=== PATIENT | female | born 1955 | race Caucasian/White ===

== ENCOUNTER 2016-10-25 14:09 | Outpatient (CLI) | payer OTHER | END 2016-10-25 14:10 | disposition home or self-care (01) | DX: Z01.812 Encounter for preprocedural laboratory examination (principal); M16.10 Unilateral primary osteoarthritis, unspecified hip; Z79.899 Other long term (current) drug therapy ==

== ENCOUNTER 2016-11-16 10:51 | Outpatient (CLI) | payer OTHER | END 2016-11-16 10:52 | disposition home or self-care (01) | DX: Z12.31 Encounter for screening mammogram for malignant neoplasm of breast (principal); Z80.3 Family history of malignant neoplasm of breast ==

== ENCOUNTER 2017-02-12 08:55 | Outpatient (CLI) | payer OTHER ==
[2017-02-12 19:16] LABS: ALBUMIN/GLOBULIN RATIO 1.7 (1.0-2.2); BILIRUBIN,TOTAL 0.6 mg/dL (0.2-1.0); BUN - BLOOD UREA NITROGEN 13 mg/dL (6-20); CARBON DIOXIDE - CO2 26 mmol/L (21-32); CHLORIDE 105 mmol/L (101-111); CHOLESTEROL 272 mg/dL; CREATININE 0.8 mg/dL (0.4-1.0); GFR - MDRD 73 (>89); GLUCOSE 100 mg/dL (70-100); HDL CHOLESTEROL 54 mg/dL; LDL/HDL RATIO 3.2 (<4.4); POTASSIUM 3.7 mmol/L (3.5-5.0); SODIUM 140 mmol/L (135-145); TOTAL PROTEIN 6.7 g/dL (6.7-8.2); TRIGLYCERIDES 218 mg/dL; VLDL CHOLESTEROL 44 mg/dL
[2017-02-12 20:01] LABS: HEMOGLOBIN A1C 0.49 g/dL
[2017-02-13 12:01] LABS: HOMOCYSTEINE 10.5 umol/L (<10.4)
== END 2017-02-12 08:56 | disposition home or self-care (01) ==
LOC: LAB.F 08:55
PROVIDERS: ATTEND Internal Medicine
DX: E78.2 Mixed hyperlipidemia (principal)
CPT/HCPCS: 36415; 80053; 80061; 80175; 83036; 83090

== ENCOUNTER 2017-04-25 12:21 | Emergency (ER) | payer OTHER ==
[2017-04-25 12:34] VITALS: BP 138/94
[2017-04-25 12:58] LABS: BILIRUBIN,URINE NEGATIVE (NEGATIVE)
[2017-04-25 13:00] LABS: BASOPHILS % (AUTO) 0.5 %; EOSINOPHILS % (AUTO) 0.4 %; HCT - HEMATOCRIT 44.1 % (37.0-47.0); HGB - HEMOGLOBIN 14.6 g/dL (12.0-16.0); LYMPHOCYTES # (AUTO) 1.5 10^3/uL (1.5-3.5); LYMPHOCYTES % (AUTO) 18.5 %; MEAN CORPUSCULAR HEMOGLOBIN 30.1 pg (27.0-31.0); MEAN CORPUSCULAR HGB CONC 33.2 g/dL (32.0-36.0); MEAN CORPUSCULAR VOLUME 90.9 fL (81.0-99.0); MEAN PLATELET VOLUME 10.2 fL (7.9-10.8); MONOCYTES # (AUTO) 0.4 10^3/uL (0.0-1.0); MONOCYTES % (AUTO) 5.2 %; NEUTROPHILS # (AUTO) 5.9 10^3/uL (1.5-6.6); NEUTROPHILS % (AUTO) 75.4 %; RED BLOOD COUNT 4.86 10^6/uL (4.20-5.40); RED CELL DISTRIBUTION WIDTH 15.4 % (12.0-15.0); UNCORRECTED WHITE BLOOD COUNT 7.9 x10^3/uL; WHITE BLOOD COUNT 7.9 x10^3/uL (4.8-10.8)
[2017-04-25 13:01] LABS: UA CHARGE (STRIP ONLY) YES; UR CULTURE IF IND NOT INDICATED
[2017-04-25 13:13] LABS: ALBUMIN/GLOBULIN RATIO 1.6 (1.0-2.2); BILIRUBIN,TOTAL 0.6 mg/dL (0.2-1.0); BUN - BLOOD UREA NITROGEN 19 mg/dL (6-20); CARBON DIOXIDE - CO2 28 mmol/L (21-32); CHLORIDE 102 mmol/L (101-111); CREATININE 0.8 mg/dL (0.4-1.0); GFR - MDRD 73 (>89); GLUCOSE 110 mg/dL (70-100); LIPASE 32 U/L (22-51); POTASSIUM 3.7 mmol/L (3.5-5.0); SALICYLATE < 6.0 mg/dL; SODIUM 139 mmol/L (135-145); TOTAL PROTEIN 7.9 g/dL (6.7-8.2)
--- NOTE | 2017-04-25 13:13 | ED Physician Documentation ---
PD HPI MHE - Stated complaint Stated Complaint: MHE - Chief complaint Chief Complaint: MHE - History obtained from History obtained from: Patient, Friend - History of Present Illness Primary symptom: Suicidal ideation - Additional information Additional information: It is a 62-year-old female with a history of bipolar disorder on Lamictal, Cymbalta, and Seroquel. She is currently being weaned off the Prozac as a are increasing the dose of Cymbalta. She has been on the Cymbalta for 3 weeks. She is here with a complaint of just feeling down and depressed she is been sleeping more and is not wanted to get out and do anything. She has not been exercising and not cooking. She lives alone with her cat. She is under the care of a psychiatrist Dr. Jiménez in [place] and also [facility] a [facility]. Has appointment with her psychiatrist tomorrow and an appointment with her psychologist on Sunday. She is thought about harming herself and these thoughts were disturbing to her. She is never do anything at past and that is where there she has a encouraged to do anything but nonetheless having these thoughts are concerning to her. Other than her psychiatric problems she has no general medical conditions other than colon cancer status post colectomy with colostomy. The cancer is believed to be in remission. She has not had any systemic complaints of chest pain, shortness of breath, nausea, vomiting, constipation diarrhea, fever chills or lower urinary symptoms. Review of systems: For pertinent positive and negatives in the review of systems please see the history of present illness, otherwise all other systems have been reviewed and are negative. Dragon disclaimer: Parts of this medical record were created using voice recognition technology. Because of the inherent limitations of this system, occasional same sounding word substitutions do occur and persist despite proofreading. Please read the document for context. Review of Systems Psychiatric: reports: Depressed, Suicidal, Anxiety, Insomnia. denies: Homicidal , Hallucinations, Delusions PD PAST MEDICAL HISTORY - Past Medical History Past Medical History: Yes Cardiovascular: None Respiratory: None Neuro: None Endocrine/Autoimmune: None GI: None PASSENGER AGENT: None : None HEENT: None Psych: Depression, Bipolar disorder Musculoskeletal: Osteoarthritis Derm: None - Past Surgical History Past Surgical History: Yes General: Bowel surgery, Colonoscopy HEENT: Tonsil/Adenoidectomy - Present Medications Home Medications: Ambulatory Orders Medication Instructions Recorded Confirmed Fluoxetine HCl [Prozac] 10 mg PO DAILY 04/14/15 04/25/17 QUEtiapine [SEROquel] 200 mg PO QPM 04/14/15 04/25/17 Alprazolam [Xanax] 0.25 mg PO BID PRN #14 tablet 04/25/17 Duloxetine HCl [Cymbalta] 60 mg PO DAILY 04/25/17 04/25/17 lamoTRIgine [LaMICtal] 200 mg PO DAILY 04/25/17 04/25/17 - Allergies Allergies/Adverse Reactions: Allergies Allergy/AdvReac Type Severity Reaction Status Date / Time amoxicillin AdvReac Hives Verified 12/06/15 16:50 - Social History Does the pt smoke?: No Smoking Status: Never smoker Does the pt drink ETOH?: No Does the pt have substance abuse?: No - Immunizations Immunizations are current?: Yes - POLST Patient has POLST: No PD ED PE NORMAL - Vitals Vital signs reviewed: Yes - General General: Alert and oriented X 3, No acute distress - HEENT HEENT: Atraumatic, PERRL, EOMI, Pharynx benign, Dentition benign - Neck Neck: Supple, no meningeal sign - Cardiac Cardiac: RRR, No murmur, No gallop, No rub - Respiratory Respiratory: No respiratory distress, Clear bilaterally - Abdomen Abdomen: Normal bowel sounds, Non tender, Non distended - Derm Derm: Normal color, Warm and dry - Extremities Extremities: No deformity, No tenderness to palpate - Neuro Neuro: Alert and oriented X 3, No motor deficit, No sensory deficit - Psych Psych: Other (Sad and expressionless) Results - Vitals Vitals: Vital Signs - 24 hr 04/25/17 12:26 Temperature 36.5 C Heart Rate 124 H Respiratory 18 Rate Blood Pressure 138/94 H O2 Saturation 98 Oxygen O2 Source Room air - Labs Labs: Laboratory Tests 04/25/17 04/25/17 04/25/17 12:46 12:49 12:49 WBC 7.9 RBC 4.86 Hgb 14.6 Hct 44.1 MCV 90.9 MCH 30.1 MCHC 33.2 RDW 15.4 H Plt Count 184 MPV 10.2 Neut # 5.9 Lymph # 1.5 [place] # 0.4 Eos # 0.0 Baso # 0.0 Absolute Nucleated RBC 0.00 Nucleated RBCs 0.0 Sodium 139 Potassium 3.7 Chloride 102 Carbon Dioxide 28 Anion Gap 9.0 BUN 19 Creatinine 0.8 Estimated GFR (MDRD) 73 L Glucose 110 H Calcium 10.0 Total Bilirubin 0.6 AST 21 ALT 23 Alkaline Phosphatase 87 Total Protein 7.9 Albumin 4.9 Globulin 3.0 Albumin/Globulin Ratio 1.6 Lipase 32 TSH Urine Color YELLOW Urine Clarity CLEAR Urine pH 6.0 Ur Specific Ward 1.010 Urine Protein NEGATIVE Urine Glucose (UA) 100 H Urine Ketones NEGATIVE Urine Occult Blood NEGATIVE Urine Nitrite NEGATIVE Urine Bilirubin NEGATIVE Urine Urobilinogen 0.2 (NORMAL) Ur Leukocyte Esterase NEGATIVE Ur Microscopic Review NOT INDICATED Urine Culture Comments NOT INDICATED Salicylates < 6.0 Urine Opiates Screen NEGATIVE Ur Oxycodone Screen NEGATIVE Urine Methadone Screen NEGATIVE Ur Propoxyphene Screen NEGATIVE Acetaminophen < 10 L Ur Barbiturates Screen NEGATIVE Ur Tricyclics Screen POSITIVE H Ur Phencyclidine Scrn NEGATIVE Ur Amphetamine Screen NEGATIVE U Methamphetamines Scrn NEGATIVE U Benzodiazepines Scrn NEGATIVE Urine Cocaine Screen NEGATIVE U Cannabinoids Screen NEGATIVE Ethyl Alcohol 5.3 04/25/17 12:49 WBC RBC Hgb Hct MCV MCH MCHC RDW Plt Count MPV Neut # Lymph # [place] # Eos # Baso # Absolute Nucleated RBC Nucleated RBCs Sodium Potassium Chloride Carbon Dioxide Anion Gap BUN Creatinine Estimated GFR (MDRD) Glucose Calcium Total Bilirubin AST ALT Alkaline Phosphatase Total Protein Albumin Globulin Albumin/Globulin Ratio Lipase TSH 0.88 Urine Color Urine Clarity Urine pH Ur Specific Ward Urine Protein Urine Glucose (UA) Urine Ketones Urine Occult Blood Urine Nitrite Urine Bilirubin Urine Urobilinogen Ur Leukocyte Esterase Ur Microscopic Review Urine Culture Comments Salicylates Urine Opiates Screen Ur Oxycodone Screen Urine Methadone Screen Ur Propoxyphene Screen Acetaminophen Ur Barbiturates Screen Ur Tricyclics Screen Ur Phencyclidine Scrn Ur Amphetamine Screen U Methamphetamines Scrn U Benzodiazepines Scrn Urine Cocaine Screen U Cannabinoids Screen Ethyl Alcohol PD MEDICAL DECISION MAKING - ED course Complexity details: reviewed old records, reviewed results, re-evaluated patient , d/w patient, d/w integrity consultant ED course: Pleasant 62-year-old female with a long history of bipolar disorder mostly on the depressive side who is currently being treated and followed by a psychiatrist in [place] and the local psychologist. She has a slightly depressed mood here and is been thinking about harming herself but does not have any plan or intent to do so. She was seen by social work and we feel the patient is low risk. She will be accompanied by her friend who is with her tonight and will go home. Her friend will accompany her to the psychiatrist appointment she has tomorrow and the plan for her is to hopefully eventually go down to [place] sometime this week ago spent some time with her sister. Disposition: To home Clinical impression: 1. Suicidal ideation-low risk 2. History of bipolar disorder with mild depression at present Departure - Departure Disposition: 01 Home, Self Care Clinical Impression: Depression, Anxiety Condition: Good Instructions: ED Depression Prescriptions: Alprazolam [Xanax] 0.25 mg PO BID PRN #14 tablet PRN Reason: Anxiety
[2017-04-25 13:15] LABS: ACETAMINOPHEN < 10 ug/mL (10-30)
[2017-04-25] MEDS ORDERED: ACETAMINOPHEN 325 MG TABLET PO STA (14:10)
[2017-04-25] MEDS ORDERED: ACETAMINOPHEN 325 MG TABLET PO ONE (14:17)
[2017-04-25] MEDS ORDERED: ALPRAZolam 0.25 MG TABLET PO STA (14:39)
[2017-04-25] MEDS ORDERED: ALPRAZolam 0.25 MG TABLET PO ONE (14:50)
== END 2017-04-25 16:08 | disposition home or self-care (01) ==
LOC: ED 12:21
DX: F32.9 Major depressive disorder, single episode, unspecified (principal); F41.9 Anxiety disorder, unspecified; F31.9 Bipolar disorder, unspecified; Z93.3 Colostomy status
CPT/HCPCS: 36415; 80053; 80306; 80307; 80320; 80329; 81003; 83690; 84443; 85025; 99283; A9270; 81001; 87086

== ENCOUNTER 2017-05-22 08:00 | Outpatient (CLI) | payer OTHER | END 2017-05-22 08:01 | disposition home or self-care (01) | LOC: LAB.R 08:00 | PROVIDERS: ATTEND Nurse Practitioner Primary Care | DX: N39.0 Urinary tract infection, site not specified (principal); N89.9 Noninflammatory disorder of vagina, unspecified | CPT/HCPCS: 87077; 87086 ==

== ENCOUNTER 2017-07-17 09:44 | Outpatient (CLI) | payer OTHER ==
[2017-07-17 18:49] LABS: ALBUMIN/GLOBULIN RATIO 1.7 (1.0-2.2); BILIRUBIN,TOTAL 0.8 mg/dL (0.2-1.0); BUN - BLOOD UREA NITROGEN 17 mg/dL (6-20); CALCIUM 9.6 mg/dL (8.5-10.3); CARBON DIOXIDE - CO2 28 mmol/L (21-32); CHLORIDE 101 mmol/L (101-111); CHOL/HDL RATIO 4.7 (<4.4); CHOLESTEROL 308 mg/dL; CREATININE 0.9 mg/dL (0.4-1.0); GFR - MDRD 64 (>89); GLUCOSE 102 mg/dL (70-100); HDL CHOLESTEROL 65 mg/dL; LDL/HDL RATIO 3.4 (<4.4); POTASSIUM 4.2 mmol/L (3.5-5.0); SODIUM 140 mmol/L (135-145); TOTAL PROTEIN 7.3 g/dL (6.7-8.2); TRIGLYCERIDES 109 mg/dL; VLDL CHOLESTEROL 22 mg/dL
== END 2017-07-17 09:45 | disposition home or self-care (01) ==
LOC: LAB.F 09:44
PROVIDERS: ATTEND Internal Medicine
DX: Z00.00 Encounter for general adult medical examination without abnormal findings (principal); D12.6 Benign neoplasm of colon, unspecified; C20 Malignant neoplasm of rectum; E78.5 Hyperlipidemia, unspecified; Z72.89 Other problems related to lifestyle
CPT/HCPCS: 36415; 80053; 80061; 82306; 82378; 86803

== ENCOUNTER 2017-11-30 11:13 | Outpatient (CLI) | payer OTHER | END 2017-11-30 11:14 | disposition home or self-care (01) | LOC: DI 11:13 | PROVIDERS: ATTEND Internal Medicine | DX: R01.1 Cardiac murmur, unspecified (principal) | CPT/HCPCS: 93306 ==

== ENCOUNTER 2017-12-05 10:23 | Outpatient (CLI) | payer OTHER ==
--- NOTE | 2017-12-06 15:25 | Mammography Report ---
DIGITAL SCREENING MAMMOGRAM: 12/05/2017 CLINICAL INDICATION: A 62-year-old with family history of breast cancer for screening. COMPARISON: 10/2016, 09/2015, 08/2014, 01/2013, 08/2010. TECHNIQUE: Routine CC and MLO projections as well as bilateral laterally exaggerated craniocaudal views were obtained of the breasts. FINDINGS: Scattered fibroglandular tissue is present within the breasts. There are no dominant masses, suspicious microcalcifications, or secondary signs of malignancy. In comparison to the previous studies, there are no significant changes. IMPRESSION: NO MAMMOGRAPHIC EVIDENCE OF MALIGNANCY. NO SIGNIFICANT INTERVAL CHANGES. RECOMMENDATION: Screening mammography is recommended annually. BIRADS CATEGORY 1 - NEGATIVE. STANDARD QUALIFYING STATEMENTS: 1. This examination was reviewed with the aid of Computed-Aided Detection (CAD). 2. A negative or benign imaging report should not delay biopsy if clinically suspicious findings are present. Consider surgical consultation if warranted. More than 5% of cancers are not identified by imaging. 3. Dense breasts may obscure an underlying neoplasm. TD: 12/06/2017 15:24
== END 2017-12-05 10:24 | disposition home or self-care (01) ==
LOC: DI.S 10:23
PROVIDERS: ATTEND Internal Medicine
DX: Z12.31 Encounter for screening mammogram for malignant neoplasm of breast (principal); Z80.3 Family history of malignant neoplasm of breast
CPT/HCPCS: 77067

== ENCOUNTER 2018-05-07 08:00 | Outpatient (CLI) | payer OTHER ==
[2018-05-07 15:03] LABS: BASOPHILS % (AUTO) 0.2 %; EOSINOPHILS # (AUTO) 0.1 10^3/uL (0.0-0.7); HGB - HEMOGLOBIN 14.3 g/dL (12.0-16.0); LYMPHOCYTES # (AUTO) 1.4 10^3/uL (1.5-3.5); LYMPHOCYTES % (AUTO) 27.4 %; MEAN CORPUSCULAR HEMOGLOBIN 31.2 pg (27.0-31.0); MEAN CORPUSCULAR HGB CONC 33.7 g/dL (32.0-36.0); MEAN CORPUSCULAR VOLUME 92.4 fL (81.0-99.0); MEAN PLATELET VOLUME 11.2 fL (7.9-10.8); MONOCYTES # (AUTO) 0.3 10^3/uL (0.0-1.0); MONOCYTES % (AUTO) 6.4 %; NEUTROPHILS # (AUTO) 3.4 10^3/uL (1.5-6.6); PLT - PLATELET COUNT 167 10^3/uL (130-450); RED CELL DISTRIBUTION WIDTH 14.2 % (12.0-15.0); WHITE BLOOD COUNT 5.2 x10^3/uL (4.8-10.8)
[2018-05-07 15:21] LABS: ALBUMIN 4.6 g/dL (3.2-5.5); ALBUMIN/GLOBULIN RATIO 1.6 (1.0-2.2); ALKALINE PHOSPHATASE 89 IU/L (42-121); ALT ALANINE AMINOTRANSFERASE 24 IU/L (10-60); AST ASPARTATE AMINOTRANSFERASE 24 IU/L (10-42); BILIRUBIN,TOTAL 0.7 mg/dL (0.2-1.0); BUN - BLOOD UREA NITROGEN 18 mg/dL (6-20); CALCIUM 9.5 mg/dL (8.5-10.3); CARBON DIOXIDE - CO2 26 mmol/L (21-32); CHLORIDE 100 mmol/L (101-111); CHOL/HDL RATIO 4.8 (<4.4); CHOLESTEROL 301 mg/dL; CREATININE 0.8 mg/dL (0.4-1.0); GFR - MDRD 73 (>89); GLUCOSE 95 mg/dL (70-100); HDL CHOLESTEROL 63 mg/dL; LDL CHOLESTEROL,CALCULATED 195 mg/dL; LDL/HDL RATIO 3.1 (<4.4); SODIUM 138 mmol/L (135-145); TOTAL PROTEIN 7.5 g/dL (6.7-8.2); VLDL CHOLESTEROL 43 mg/dL
== END 2018-05-07 08:01 | disposition home or self-care (01) ==
LOC: LAB.R 08:00
PROVIDERS: ATTEND Internal Medicine
DX: C20 Malignant neoplasm of rectum (principal); E78.5 Hyperlipidemia, unspecified; F32.9 Major depressive disorder, single episode, unspecified; Z79.899 Other long term (current) drug therapy
CPT/HCPCS: 80053; 80061; 83721; 84443; 85025

== ENCOUNTER 2019-05-26 09:14 | Outpatient (CLI) | payer OTHER ==
[2019-05-26 18:01] LABS: LITHIUM 0.61 mmol/L
[2019-05-26 18:05] LABS: ALBUMIN 4.5 g/dL (3.2-5.5); ALBUMIN/GLOBULIN RATIO 1.6 (1.0-2.2); BILIRUBIN,DIRECT 0.1 mg/dL (0.1-0.5); BILIRUBIN,TOTAL 0.9 mg/dL (0.2-1.0); CALCIUM 10.1 mg/dL (8.5-10.3); CREATININE 0.7 mg/dL (0.4-1.0); TOTAL PROTEIN 7.4 g/dL (6.7-8.2)
[2019-05-26 18:26] LABS: HB2 TOTAL 15.2 g/dL; HEMOGLOBIN A1C 0.49 g/dL; HEMOGLOBIN A1C % 5.1 % (4.6-6.2)
== END 2019-05-26 09:15 | disposition home or self-care (01) ==
LOC: LAB.S 09:14
PROVIDERS: ATTEND Family Medicine
DX: E78.5 Hyperlipidemia, unspecified (principal); F31.9 Bipolar disorder, unspecified
CPT/HCPCS: 36415; 80053; 80076; 80178; 83036; 84443

== ENCOUNTER 2019-11-02 12:28 | Outpatient (CLI) | payer OTHER | END 2019-11-02 12:29 | disposition EMS.NT | LOC: EMS 12:28 | PROVIDERS: ATTEND Surgery | DX: Z03.89 Encounter for observation for other suspected diseases and conditions ruled out (principal) ==

== ENCOUNTER 2019-11-03 09:10 | Outpatient (CLI) | payer OTHER ==
[2019-11-03 17:27] LABS: MEAN CORPUSCULAR HEMOGLOBIN 31.2 pg (27.0-31.0); MEAN CORPUSCULAR HGB CONC 30.8 g/dL (32.0-36.0); MEAN CORPUSCULAR VOLUME 101.3 fL (81.0-99.0); MEAN PLATELET VOLUME 13.5 fL (7.9-10.8); RED BLOOD COUNT 4.49 10^6/uL (4.20-5.40); RED CELL DISTRIBUTION WIDTH 13.4 % (12.0-15.0); WHITE BLOOD COUNT 8.9 x10^3/uL (4.8-10.8)
[2019-11-03 17:44] LABS: LITHIUM 0.62 mmol/L
[2019-11-03 17:55] LABS: ALBUMIN/GLOBULIN RATIO 1.7 (1.0-2.2); BILIRUBIN,TOTAL 0.6 mg/dL (0.2-1.0); CALCIUM 9.5 mg/dL (8.5-10.3); CREATININE 0.8 mg/dL (0.4-1.0); TOTAL PROTEIN 6.3 g/dL (6.7-8.2)
== END 2019-11-03 09:11 | disposition home or self-care (01) ==
LOC: LAB.S 09:10
PROVIDERS: ATTEND Psychiatry & Neurology Psychiatry
DX: F31.4 Bipolar disorder, current episode depressed, severe, without psychotic features (principal)
CPT/HCPCS: 36415; 80053; 80178; 83721; 84443; 84478; 85027